=== PATIENT | female | born 2000 | race Hispanic/Latino ===

== ENCOUNTER 2025-06-07 23:01 | Emergency (ER) | payer BC, SELFPAY ==
[2025-06-07 23:04] VITALS: BP 114/73
[2025-06-07 23:25] LABS: Hematocrit 37.4 % (37.0-47.0); Hemoglobin 12.3 g/dL (12.0-16.0); Mean Corp Hgb Conc. 32.9 g/dL (33.0-37.0); Mean Corpuscular Volume 87.4 fL (81.0-99.0); Platelet Count 217 10^3/uL (130-400); Red Cell Dist. Width 13.0 % (11.5-14.5)
[2025-06-07 23:35] LABS: ALT (SGPT) 17 U/L (0-35); AST (SGOT) 17 U/L (14-36); Albumin 4.6 g/dl (3.5-5.0); Alkaline Phosphatase 61 U/L (38-126); Blood Urea Nitrogen 22 mg/dl (7-17); Calcium 9.7 mg/dl (8.4-10.2); Carbon Dioxide 24 mmol/L (22-30); Chloride 108 mmol/L (98-107); Glucose 130 mg/dl (70-99); HCG, Serum Qualitative Screen Negative; Potassium 3.6 mmol/L (3.5-5.1); Sodium 138 mmol/L (135-145); Total Protein 7.3 g/dl (6.3-8.2); eGFR > 60.00
[2025-06-07 23:56] LABS: Nucleated Red Blood Cells % 0 %
[2025-06-08 01:08] LABS: Urine Character Slightly Cloudy (Clear)
[2025-06-08 01:29] LABS: Urine Squamous Cell >30 /LPF (Few)
[2025-06-08 01:33] LABS: Urine Red Blood Cell 30-40 /HPF (0-2)
[2025-06-08 01:44] VITALS: BMI 21.8
[2025-06-08] MEDS: TORADOL 15 MG IV (04:21)
--- NOTE | 2025-06-08 05:45 | ED.GENMED ---
History of Present Illness
General
Chief Complaint: Flank Pain
Time Seen by Provider: 06/08/25 03:58
Course
Orders/Labs/Results
Orders:
Orders
06/07/25 23:08
Urinalysis Reflex To Culture Urgent
Date Specimen was Collected: 06/07/25
Time Specimen was Collected: 23:09
06/07/25 23:09
Test Result ONCE
06/07/25 23:13
Complete Blood Count/With Diff Urgent
Comprehensive Metabolic Panel Urgent
HCG, Serum Qualitative Screen Urgent
06/08/25 00:51
Urine Microscopic Reflex Cult Urgent
Urine Culture Urgent
[place] Source: U
Specimen Description:
Date Specimen was Collected: 06/07/25
Time Specimen was Collected: 23:09
06/08/25 03:57
CT Abd/pel Without Iv Or Oral Urgent
Comment:
Reason For Exam: flank pain
06/08/25 04:21
Ketorolac [Toradol] 15 mg .ROUTE .STK-MED ONE
Ketorolac [Toradol] 15 mg IV NOW STA
06/08/25 05:31
Fosfomycin [Monurol] 3 gm PO ONCE ONE
Tamsulosin [Flomax] 0.4 mg PO NOW STA
Abnormal Lab Results
06/07/25 06/08/25
23:13 00:51
MCHC 32.9 L g/dL
(33.0-37.0)
MPV 11.0 H fL
(7.4-10.4)
Absolute Neuts (auto) 8.4 H 10^3/uL
(1.4-6.5)
Neutrophils % 81.5 H %
(42.2-75.2)
Lymphocytes % 13.1 L %
(20.5-51.1)
Chloride 108 H mmol/L
(98-107)
BUN 22 H mg/dl
(7-17)
Glucose 130 H mg/dl
(70-99)
Urine Ketones 1+ A
(Negative)
Ur Occult Blood Reflex 2+ A
(Negative)
Urine RBC 30-40 A /HPF
(0-2)
Urine WBC (Reflex) 11-15 A /HPF
(0-5)
Urine Bacteria (Reflex) Many A
(Negative)
Urine Albumin (Reflex) 1+ A
(Neg - Trace)
06/07/25 23:13
06/07/25 23:13
Vital Signs
Initial and Last Documented VS:
Initial Vital Signs
Temp Pulse Resp BP Pulse Ox
97.5 F 70 16 114/73 99
06/07/25 23:04 06/07/25 23:04 06/07/25 23:04 06/07/25 23:04 06/07/25 23:04
Last Documented Vital Signs
Temp Pulse Resp BP Pulse Ox
97.7 F 51 22 114/73 99
06/08/25 01:45 06/08/25 01:45 06/08/25 01:45 06/07/25 23:04 06/08/25 05:47
*Pulse Oximetry
SaO2: 99
Oxygen Mode of Delivery: Room air
ED Attending Note
-
Portions of this chart may have been created with voice recognition software.� Occasional wrong word or��sound alike� substitutions may have occurred due to the inherent limitations of voice recognition software.
Discharge Plan
Departure
Patient Disposition: Home (Routine Discharge)
Date of Disposition: 06/08/25
Time of Disposition: 05:39
Patient with high blood pressure during this ER visit?: Yes
Condition: Fair
Discharge Problem:
Kidney stone
Instructions: Kidney Stones (DC), Flank Pain (DC), How to Strain Your Urine
Prescriptions:
New
tamsulosin [Flomax] 0.4 mg Capsule
0.4 mg PO DAILY Qty: 5 0RF
diclofenac sodium 75 mg tablet,delayed release (DR/EC)
75 mg PO BID Qty: 10 0RF
Referrals:
NONE,* [Family Provider, Internal Medicine]
John Paul Sherman Jr., MD [Active, Urology] - As needed
Stand Alone Forms: Back to School
Activity Restrictions/Additional Instructions:
[Your prescriptions were sent electronically to the pharmacy that you specified.]
Thank You for choosing [facility].
It was a pleasure meeting you and taking part in your care. We hope for your continued healing and wellness.
Please read discharge instructions in their entirety. However, they are for general education and may not describe your exact diagnosis at discharge. Information on your ER visit and medical conditions were discussed with you along with appropriate
follow up information...
If indicated, please take your medications as instructed and indicated on discharge paperwork.
Please schedule a follow up appointment as directed. Call to schedule an appointment
Please return to the emergency department with ANY change in, persisting, or worsening of symptoms. If any of your symptoms do not improve, or persist, or become more severe within 6-12 hours, please return to the emergency department for further
care.
Please return to the emergency department if you develop a headache, neck pain/stiffness, fever greater than 100.4F, chest pain, shortness of breath, persistent nausea, vomiting, slurred speech, difficulty walking, numbness/tingling, weakness, signs
of infection or any other symptoms that are worrisome to you.
If you have any questions or concerns please do not hesitate to call the Hospital at or E-mail me directly at
Interventions
Interventions:
*Risk Screen - Suicide Last Done: 06/07/25 23:04
*Neglect/Abuse Screening Last Done: 06/07/25 23:04
*ED- Fall Risk Assessment Last Done: 06/07/25 23:04
*ED COVID-19 Vaccine History Last Done: 06/07/25 23:04
AA-Obojpg-Wteygxtrze Assessment Last Done: 06/08/25 01:37
ED-Female Genitourinary Assessment Last Done: 06/08/25 01:50
Discharge Date and Time
Print Language: SWEDISH
[2025-06-08] MEDS: MONUROL 3 GM PO (05:59)
[2025-06-08] MEDS: FLOMAX 0.4 MG PO (05:59)
--- NOTE | 2025-06-09 23:09 | ED.GENMED ---
History of Present Illness
General
Chief Complaint: Flank Pain
Source: patient
Exam Limitations: none
Time Seen by Provider: 06/08/25 03:58
Nursing documentation reviewed up to this point in time: agreed with
History of Present Illness
History of Present Illness:
Note:
CHIEF COMPLAINT(S)
Right flank pain.
HISTORY OF PRESENT ILLNESS
The patient is a 25-year-old female presenting with pain in the lower right side of her back, specifically in the right flank area. She describes the pain as feeling like something is 'punching' her. The patient denies any history of kidney stones
personally or in her family. She reports that her last menstrual period was a few days ago and believes there is no current vaginal bleeding. She provided a urine sample upon arrival, although she denies any urinary symptoms such as burning or
difficulty urinating and reports previous urine tests at another hospital did not indicate a urinary tract infection. The patient denies experiencing fevers, chills, or any other associated symptoms.
ADDITIONAL HISTORY OBTAINED FROM SOURCES OTHER THAN THE PATIENT
According to previous hospital records, the patient had a urine analysis, which did not reveal any signs of a urinary tract infection.
PLAN
1. Order a computed tomography (CT) scan to further evaluate right flank pain.
2. Administer analgesics as needed for pain relief, starting with ibuprofen. If ineffective after 15 minutes, consult with nursing staff to adjust pain management.
DIFFERENTIAL DIAGNOSIS
The Differential Diagnosis includes, in no particular order and is not limited to:
1. Nephrolithiasis (Kidney stones)
2. Pyelonephritis
3. Musculoskeletal pain
4. Appendicitis (unlikely given location but should still consider)
5. Interstitial cystitis
6. Ureteral obstruction
7. Ovarian cyst
8. Gallbladder disease
9. Urinary tract infection
10. Gynecological disorders (e.g., endometriosis)
Disposition:
SUMMARY OF ENCOUNTER
The patient, a 25-year-old female, presented to the emergency department with right flank pain described as feeling like something is 'punching' her. A CT scan was conducted, which revealed a 2.5-mm calculi in the right distal ureter causing mild to
moderate hydronephrosis. She was managed with analgesics for pain relief.
DISPOSITION
Discharge.
ASSESSMENT
The patients symptoms and CT scan findings are consistent with nephrolithiasis (kidney stones).
PLAN
The patient will be discharged with instructions to follow up with urology for further management and evaluation of the identified right distal ureteral stone.
INDEPENDENT REVIEW OF LABS AND INTERPRETATION OF TESTS
My independent interpretation of the CT scan indicates a 2.5-mm calculus in the right distal ureter resulting in mild to moderate hydronephrosis. No other abnormalities were noted.
PATIENT EDUCATION AND COUNSELING
The patient was counseled on the nature of her nephrolithiasis, including the presence of the stone and current hydronephrosis. She was advised to maintain hydration and monitor for any worsening symptoms, such as increased pain, fever, or changes
in urinary habits, which could necessitate immediate medical attention.
FOLLOW-UP INSTRUCTIONS
Please follow up with urology for further evaluation and management as advised.
MEDICATION RECONCILIATION
Analgesics were administered for pain relief. Specific medication details were not mentioned in the transcript but should be clarified in discharge instructions.
MEDICAL DECISION MAKING
- Number and Complexity of Problems Addressed: Nephrolithiasis with mild to moderate hydronephrosis.
- Data:
Category 1:
My independent interpretation of CT scan: 2.5-mm calculus in the right distal ureter with mild to moderate hydronephrosis.
Category 2:
Clinical information was obtained from previous hospital records, indicating no signs of urinary tract infection.
-Risk:
Consideration of Admission/Observation: Escalation of care, including admission/observation, was considered given the complexity and risk of the patients presenting complaint, exam findings, and/or underlying comorbidities. However, ultimately, I
feel the patient is safe for outpatient management with close follow-up. Reasoning: Work-up reassuring, does not reveal any acute life/organ-threatening processes, patients symptoms well controlled upon reevaluation, reexamination is reassuring,
vitals are stable, patient agreeable with discharge, reliable for follow-up.
DIAGNOSIS
Nephrolithiasis (N20.1) with mild to moderate hydronephrosis.
Phy Exam
Physical Exam
Physical Exam:
.
Course
Orders/Labs/Results
Orders:
Orders
06/07/25 23:08
Urinalysis Reflex To Culture Urgent
Date Specimen was Collected: 06/07/25
Time Specimen was Collected: 23:09
06/07/25 23:09
Test Result ONCE
06/07/25 23:13
Complete Blood Count/With Diff Urgent
Comprehensive Metabolic Panel Urgent
HCG, Serum Qualitative Screen Urgent
06/08/25 00:51
Urine Microscopic Reflex Cult Urgent
Urine Culture Urgent
[place] Source: U
Specimen Description:
Date Specimen was Collected: 06/07/25
Time Specimen was Collected: 23:09
06/08/25 03:57
CT Abd/pel Without Iv Or Oral Urgent
Comment:
Reason For Exam: flank pain
06/08/25 04:21
Ketorolac [Toradol] 15 mg .ROUTE .STK-MED ONE
Ketorolac [Toradol] 15 mg IV NOW STA
06/08/25 05:31
Fosfomycin [Monurol] 3 gm PO ONCE ONE
Tamsulosin [Flomax] 0.4 mg PO NOW STA
Abnormal Lab Results
06/07/25 06/08/25
23:13 00:51
MCHC 32.9 L g/dL
(33.0-37.0)
MPV 11.0 H fL
(7.4-10.4)
Absolute Neuts (auto) 8.4 H 10^3/uL
(1.4-6.5)
Neutrophils % 81.5 H %
(42.2-75.2)
Lymphocytes % 13.1 L %
(20.5-51.1)
Chloride 108 H mmol/L
(98-107)
BUN 22 H mg/dl
(7-17)
Glucose 130 H mg/dl
(70-99)
Urine Ketones 1+ A
(Negative)
Ur Occult Blood Reflex 2+ A
(Negative)
Urine RBC 30-40 A /HPF
(0-2)
Urine WBC (Reflex) 11-15 A /HPF
(0-5)
Urine Bacteria (Reflex) Many A
(Negative)
Urine Albumin (Reflex) 1+ A
(Neg - Trace)
06/07/25 23:13
06/07/25 23:13
Vital Signs
Initial and Last Documented VS:
Initial Vital Signs
Temp Pulse Resp BP Pulse Ox
97.5 F 70 16 114/73 99
06/07/25 23:04 06/07/25 23:04 06/07/25 23:04 06/07/25 23:04 06/07/25 23:04
Last Documented Vital Signs
Temp Pulse Resp BP Pulse Ox
97.7 F 82 18 114/73 98
06/08/25 01:45 06/08/25 06:02 06/08/25 06:02 06/07/25 23:04 06/08/25 06:02
*Pulse Oximetry
SaO2: 98
Oxygen Mode of Delivery: Room air
Patient hypoxic: no
*Critical Care Note
Total Time (30-74mins, 75-104mins- exclusive of procedures): Not Applicable
ED Attending Note
-
Portions of this chart may have been created with voice recognition software.� Occasional wrong word or��sound alike� substitutions may have occurred due to the inherent limitations of voice recognition software.
Discharge Plan
Departure
Patient Disposition: Home (Routine Discharge)
Date of Disposition: 06/08/25
Time of Disposition: 05:39
Patient with high blood pressure during this ER visit?: Yes
Condition: Fair
Discharge Problem:
Kidney stone
Instructions: Kidney Stones (DC), Flank Pain (DC), How to Strain Your Urine
Prescriptions:
New
tamsulosin [Flomax] 0.4 mg Capsule
0.4 mg PO DAILY Qty: 5 0RF
diclofenac sodium 75 mg tablet,delayed release (DR/EC)
75 mg PO BID Qty: 10 0RF
oxycodone-acetaminophen [Percocet] 5-325 mg tablet
1 tab PO Q4HPRN PRN (Reason: pain) Qty: 5 0RF
Referrals:
NONE,* [Family Provider, Internal Medicine]
John Paul Sherman Jr., MD [Active, Urology] - As needed
Stand Alone Forms: Back to School
Activity Restrictions/Additional Instructions:
[Your prescriptions were sent electronically to the pharmacy that you specified.]
Thank You for choosing [facility].
It was a pleasure meeting you and taking part in your care. We hope for your continued healing and wellness.
Please read discharge instructions in their entirety. However, they are for general education and may not describe your exact diagnosis at discharge. Information on your ER visit and medical conditions were discussed with you along with appropriate
follow up information...
If indicated, please take your medications as instructed and indicated on discharge paperwork.
Please schedule a follow up appointment as directed. Call to schedule an appointment
Please return to the emergency department with ANY change in, persisting, or worsening of symptoms. If any of your symptoms do not improve, or persist, or become more severe within 6-12 hours, please return to the emergency department for further
care.
Please return to the emergency department if you develop a headache, neck pain/stiffness, fever greater than 100.4F, chest pain, shortness of breath, persistent nausea, vomiting, slurred speech, difficulty walking, numbness/tingling, weakness, signs
of infection or any other symptoms that are worrisome to you.
If you have any questions or concerns please do not hesitate to call the Hospital at or E-mail me directly at [email or web address]
Interventions
Interventions:
*Risk Screen - Suicide Last Done: 06/07/25 23:04
*General Assessment Last Done: 06/08/25 06:37
*Neglect/Abuse Screening Last Done: 06/07/25 23:04
*ED- Fall Risk Assessment Last Done: 06/07/25 23:04
*ED COVID-19 Vaccine History Last Done: 06/07/25 23:04
*Nursing Disposition Last Done: 06/08/25 06:37
LS-Jnylcu-Kledgyizcu Assessment Last Done: 06/08/25 01:37
ED-Female Genitourinary Assessment Last Done: 06/08/25 01:50
Discharge Date and Time
Discharge Date/Time: 06/08/25 06:41
Print Language: WOLOF
== END 2025-06-08 06:41 | disposition home or self-care (01) ==
LOC: EMR 23:01
PROVIDERS: EMERGENCY PHYSICIAN Student in an Organized Health Care Education/Training Program
DX: N13.2 Hydronephrosis with renal and ureteral calculous obstruction (principal); R03.0 Elevated blood-pressure reading, without diagnosis of hypertension
CPT/HCPCS: 99284; 96374; 74176; 80053; 81003; 81015; 84703; 85025; 87086